=== PATIENT | female | born 2000 | race Caucasian/White ===

== ENCOUNTER 2023-06-05 20:31 | Emergency (ER) | payer SELFPAY ==
[~2023-06-05] VITALS: Ht 167.6 cm; Wt 64.2 kg
[2023-06-05 20:55] VITALS: BP 125/77; PULSE 79; RESP 17; TEMP 97.6; O2SAT 100
[2023-06-05 22:34] LABS: APPEARANCE,URINE CLEAR (CLEAR); BILIRUBIN,URINE NEGATIVE (NEGATIVE); BLOOD, URINE 3+ (NEGATIVE); COLOR,URINE YELLOW (YELLOW); LEUKOCYTE ESTERASE ,URINE 2+ (NEGATIVE); NITRITE, URINE NEGATIVE (NEGATIVE); PH,URINE 6.5 (5.0-9.0); PROTEIN,URINE NEGATIVE (NEGATIVE); UGLUCOSE NEGATIVE (NEGATIVE)
[2023-06-05 22:44] LABS: RBC,URINE 11-20 (MOD) /HPF (0-5)
[2023-06-05 22:45] LABS: BACTERIA,URINE >30 (MANY) /HPF (None Seen); MUCUS,URINE 1+ /LPF (None Seen); SQUAMOUS EPITHELIAL CELL,UR 0-3 (FEW) /LPF (0-3 (FEW))
[2023-06-05] MEDS ORDERED: ACETAMINOPHEN EXTRA STRENGTH 500 MG TAB PO ONE (23:55)
[2023-06-05] MEDS ORDERED: cefTRIAXone 1,000 MG in LIDOCAINE MPF 1% 2.1 ML IM ONE (23:55)
[2023-06-05] MEDS ORDERED: PHENAZOPYRIDINE 100 MG TAB PO ONE (23:55)
[2023-06-05] MEDS ORDERED: PYR100 PO (23:57)
[2023-06-05] MEDS ORDERED: ACET-10509 PO (23:57)
[2023-06-05] MEDS ORDERED: cefTRIAXone 1,000 MG VIAL ONE (23:57)
[2023-06-05] MEDS ORDERED: CEPH500C16 PO (23:57)
[2023-06-05] MEDS ORDERED: LIDOCAINE MPF 1% 5 ML ONE (23:58)
== END 2023-06-06 00:29 | disposition home or self-care (01) ==
LOC: MED 20:31
DX: N39.0 Urinary tract infection, site not specified (principal); Z98.890 Other specified postprocedural states; Z79.899 Other long term (current) drug therapy; Z79.2 Long term (current) use of antibiotics
CPT/HCPCS: 81001; 81025; 87086; 96372; 99283; J0696; J2001